=== PATIENT | male | born 1975 | race African-American/Black ===

== ENCOUNTER 2017-05-21 22:55 | Emergency (ER) | payer OTHER ==
[2017-05-21 23:02] VITALS: BMI 23.6
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
[2017-05-21] MEDS ORDERED: KETOROLAC TROMETHAMINE 60 MG/2 ML VIAL IM ONE (23:16)
[2017-05-21] MEDS ORDERED: DOXYCYCLINE HYCLATE 100 MG CAPSULE PO ONE ×2 (23:16→23:44)
[2017-05-21] MEDS ORDERED: KETOROLAC TROMETHAMINE 60 MG/2 ML VIAL ONE (23:44)
[2017-05-22] MEDS ORDERED: OXYCODONE/APAP 5/325MG COMBO TABLET PO ONE (00:56)
[2017-05-22] MEDS ORDERED: OXYCODONE/APAP 5/325MG COMBO TABLET ONE (01:09)
[2017-05-22 01:14] VITALS: BP 130/80; PULSE 89; TEMP 97.6
== END 2017-05-22 01:21 | disposition home or self-care (01) ==
LOC: JER 22:55
PROC: 0HQFXZZ Repair Right Hand Skin, External Approach (ICD-10-PCS; principal; 2017-05-21)
DX: S61.411A Laceration without foreign body of right hand, initial encounter (principal); X99.1XXA Assault by knife, initial encounter; Y93.89 Activity, other specified; Y92.410 Unspecified street and highway as the place of occurrence of the external cause
CPT/HCPCS: 99283-25